=== PATIENT | female | born 1965 | race Caucasian/White ===

== ENCOUNTER 2019-06-29 12:56 | Outpatient (CLI) | payer OTHER ==
--- NOTE | 2019-06-29 15:32 | MRI ---
MRI LUMBAR SPINE WITHOUT CONTRAST: Date: 06/29/19 INDICATION: History of intervertebral disc displacement with low back pain and left-sided radicular symptoms. Pat ient is having numbness and pain in the left inguinal region, left hip flexor region, and quads. Carmen ent is having weakness in the region of the left knee. COMPARISON: None. FINDINGS: Five lumbar-type vertebral bodies are assumed for the purposes of this exam due to lack of radiograph ic comparisons. Conus is seen to terminate at approximately L1-2. Distal spinal cord demonstrates a normal signal int ensity. Visualized retroperitoneum and paravertebral soft tissues appear within normal limits. Bone marrow signal intensity is within normal limits. Small Schmorl's node is seen involving the end plate of T11-T12 and T12-L1. There is loss of disc signal and height at L5-S1, L3-4, and L2-3. At L5-S1, there is no appreciable central canal narrowing. There is mild facet hypertrophy on the lef t that induces mild neuroforaminal encroachment. At L4-5, there is a broad based bulge with facet hypertrophy, but no appreciable central canal or karen ral foraminal narrowing. At L3-4, there is a broad based bulge with a superimposed left paracentral and left foraminal disc pr otrusion. There is narrowing of the left lateral recess without definite impingement of the traversin g left L4 nerve root. There is some mild neural foraminal encroachment at L3-4 without definite nerve root impingement. At L2-3, there is no appreciable central canal or neural foraminal narrowing. At L1-L2, there is no appreciable central canal or neural foraminal narrowing. At T12-L1, there is no appreciable central canal or neural foraminal narrowing. IMPRESSION: 1. Multilevel spondylosis of the lumbar spine. This is most pronounced at L3-4 where there is left p aracentral and left foraminal disc protrusion causing some mild narrowing of the left lateral recess without definite impingement of the traversing left L4 nerve root. 2. Mild neural foraminal encroachment as detailed above. POS: [facility]
== END 2019-06-29 12:57 | disposition home or self-care (01) ==
LOC: SCSMRI 12:56
PROVIDERS: ATTEND Psychiatry & Neurology Neurology
DX: M51.26 Other intervertebral disc displacement, lumbar region (principal); M47.816 Spondylosis without myelopathy or radiculopathy, lumbar region
CPT/HCPCS: 72148